=== PATIENT | male | born 1945 | race Caucasian/White ===

== ENCOUNTER → 2017-01-18 | Outpatient (CLI) | payer MEDICARE, OTHER ==
--- NOTE | 2017-01-18 15:28 | KCIC ---
MR of the right shoulder Indication: Shoulder pain. Possible rotator cuff tear. Symptoms for a few months. Technique: Standard multiplanar sequences are obtained. Findings: Acromioclavicular joint: Mildly degenerative and hypertrophic. Rotator cuff: Full-thickness tear of the supraspinatus tendon involving its anterior to mid substance, measuring about 2.5 cm AP diameter. Retraction measures 3 cm. There is tendinosis and partial tearing of the posterior supraspinatus or infraspinatus tendons. Partial subscapularis tendon tear. Mild rotator cuff muscle volume loss and fatty infiltration. Trace subdeltoid bursal fluid. Glenohumeral cartilage: Mild chondromalacia. Fluid: Trace joint fluid. Labrum: Limited visualization due to motion degradation. There does appear to be a superior labral tear. Biceps tendon: Intact Bones: No lesion or acute fracture. Soft tissue: No acute findings. Impression: 1. Moderate full-thickness supraspinatus tendon tear, partial subscapularis tendon tear. 2. Superior labral tear. Electronically signed by: Monty Mark MD (01/18/2017 3:25 PM) [facility]
== END | disposition home or self-care (01) ==
LOC: KCIC MRI 14:25
PROVIDERS: ATTEND Family Medicine
DX: M75.101 Unspecified rotator cuff tear or rupture of right shoulder, not specified as traumatic (principal); S46.911A Strain of unspecified muscle, fascia and tendon at shoulder and upper arm level, right arm, initial encounter; S43.431A Superior glenoid labrum lesion of right shoulder, initial encounter; X58.XXXA Exposure to other specified factors, initial encounter; Y93.89 Activity, other specified; Y92.89 Other specified places as the place of occurrence of the external cause; Y99.8 Other external cause status
CPT/HCPCS: 73221